=== PATIENT | male | born 1960 | race Caucasian/White ===

== ENCOUNTER 2020-12-29 18:47 | Emergency (ER) | payer OTHER ==
[2020-12-29 20:13] LABS: BASOPHIL 0.8 % (0-2); EOSINOPHIL 10.8 % (0-5); HCT 39.2 % (42.0-52.0); HGB 12.3 g/dl (13.2-18.0); LYMPHOCYTE 35.2 % (15-48); MCH 27.4 pg (25.0-31.0); MCHC 31.4 g/dL (32.0-36.0); MCV 87.3 fL (78.0-100.0); MONOCYTE 9.7 % (0-12); MPV 8.8 fL (6.0-9.5); NEUTROPHIL 43.4 % (41-80); NRBC 0; PLT 296 K/uL (150-400); RBC 4.49 M/uL (4.70-6.00); RDW 15.9 % (11.5-14.0); WBC 7.1 K/uL (4.0-10.5)
[2020-12-29 20:23] LABS: ALBUMIN 3.8 g/dL (3.4-5.0); BILIRUBIN - TOTAL 0.2 mg/dL (0.2-1.0); BUN/CREAT RATIO (CALC) 13.7 RATIO; CREATININE 1.02 mg/dL (0.67-1.17); GLOBULIN (CALCULATION) 4.3 g/dL; POTASSIUM 3.8 mmol/L (3.5-5.1); TOTAL PROTEIN 8.1 g/dL (6.4-8.2)
[2020-12-29 20:30] LABS: PRO-BNP 181 pg/mL (<125)
[2020-12-29] MEDS ORDERED: HCTZ12.5 MG PO (21:09)
== END 2020-12-29 21:19 | disposition home or self-care (01) ==
LOC: FER 18:47
PROVIDERS: Emergency Medicine Emergency Medical Services
DX: I11.0 Hypertensive heart disease with heart failure (principal); I50.9 Heart failure, unspecified; I25.2 Old myocardial infarction; J44.9 Chronic obstructive pulmonary disease, unspecified; F17.210 Nicotine dependence, cigarettes, uncomplicated; Z86.19 Personal history of other infectious and parasitic diseases; Z95.5 Presence of coronary angioplasty implant and graft; Z79.899 Other long term (current) drug therapy
CPT/HCPCS: 36415; 71045; 80053; 83880; 84484; 85025; 93005